=== PATIENT | female | born 1990 | race African-American/Black ===

== ENCOUNTER → 2016-09-06 21:00 | Emergency (ER) | payer OTHER ==
[~2016-09-06 21:00] MED LIST: BACTRIM DS TABL1 TAB PO; DARVOCET-N 1001 TAB PO; OMEPRAZOLE20 M2 PO; PEPCID AC20 M2 PO; PEPCID40 MG PO; PHENERGAN PO; PHENERGAN25 MG PO; PRENATAL1 TA1 PO; ZOFRAN ODT4 MG PO; ZOFRAN PO; ZOFRAN8 MG PO
== END | disposition home or self-care (01) ==
LOC: CED 21:00
DX: R06.02 Shortness of breath (principal); J45.909 Unspecified asthma, uncomplicated; F17.210 Nicotine dependence, cigarettes, uncomplicated
CPT/HCPCS: 94640; 99283

== ENCOUNTER 2016-09-06 23:31 | Emergency (ER) | payer OTHER ==
--- NOTE | ~2016-09-06 | CR72 ---
[facility] A Service of [facility] & [facility] RADIOLOGY TEXT RESULTS PATIENT: MARÍA ELENA ANGELES LOCATION: [facility] : [birth year] UNIT #: [id number] AGE: [address]: Cat Fatima MD SEX: F ORDER DR: [id number] [facility] [address] [place], [place] [address] [id number] E MR#: [id number] Acc #: [id number] NAME: MARÍA ELENA ANGELES : 1990 SEX: F STUDY DATE/TIME: 09/06/2016 22:49 UNIT: [facility] ROOM: STUDY DESCRIPTION: CR Chest Single View Portable Attending Physician: Cat Fatima M.D. Ordering Physician: Cat Fatima M.D. Primary Care Physician: Primary Care Physician No MEDICAL IMAGING REPORT This report is preliminary unless electronic signature is present EXAM Portable chest INDICATIONS Dyspnea, shortness of air beginning 09/06. FINDINGS A portable view of the chest was obtained. The heart size and vascularity are normal, the lungs are clear and the bones are unremarkable. IMPRESSION No active disease. Dictated by... Gianni Storm M.D. THIS IS AN ELECTRONICALLY VERIFIED REPORT Gianni Storm M.D. at 09/07/2016 5:05 AM GIGI/leonardo TD: 09/07/2016 00:11 JOB #: [id number] MEDICAL IMAGING REPORT Page 1 of 1 COPY
--- NOTE | ~2016-09-06 | EKG ---
PATIENT: MARÍA ELENA ANGELES UNIT #: [id number] Ventricular Rate: 101 BPM Atrial Rate: 101 BPM P-R Interval: 162 ms QRS Duration: 66 ms Q-T Interval: 344 ms QTC Calculation(Bezet): 446 ms P Dorr: 58 degrees Calculated R Dorr: 68 degrees Calculated T Dorr: 51 degrees Diagnosis Line: Sinus tachycardia Diagnosis Line: Otherwise normal ECG Diagnosis Line: When compared with ECG of 25-FEB-2013 13:16, Diagnosis Line: (unconfirmed) Diagnosis Line: No significant change was found Diagnosis Line: Confirmed by BRISA STATON MD ([id number]) on Diagnosis Line: 09/08/2016 6:35:08 AM INTERPRETING BLANCA OLPEZ
--- NOTE | ~2016-09-06 | CT16 ---
[facility] A Service of [facility] RADIOLOGY TEXT RESULTS PATIENT: MARÍA ELENA ANGELES LOCATION: [facility] : [birth year] UNIT #: [id number] AGE: [address]: Cat Fatima MD SEX: F ORDER DR: [id number] [id number] [facility]. [place], [place] [address] [id number] E MR#: [id number] Acc #: [id number] NAME: MARÍA ELENA ANGELES : 1990 SEX: F STUDY DATE/TIME: 09/07/2016 1:07 UNIT: [facility] ROOM: STUDY DESCRIPTION: CT Angio Chest for PE Attending Physician: Cat Fatima M.D. Ordering Physician: Cat Fatima M.D. Primary Care Physician: Primary Care Physician No MEDICAL IMAGING REPORT This report is preliminary unless electronic signature is present EXAM CT chest with pulmonary embolus protocol INDICATIONS Shortness of air, chest tightness, cough for 2 hours. TECHNIQUE The patient was given 80 mL of Isovue-370 and spiral imaging was performed through the chest. 3-D reconstructions through the pulmonary arteries were generated. This CT exam was performed with one or more of the following radiation dose reduction techniques: Automatic exposure control, adjustment of mA and/or kV according to patient size, and iterative reconstruction. FINDINGS The lungs are clear except for a 4-mm nodule in the right lower lobe, which is unchanged from a CT abdomen and pelvis from 12/12/2013. The thyroid gland is normal. The aorta is normal in size and there is no dissection. The pulmonary arteries are optimally opacified and there is no CT evidence of pulmonary embolus. There is no mediastinal or hilar adenopathy. Normal thymic tissue is present in the anterior mediastinum. Visualized portions of the upper abdomen are normal. Bones are unremarkable. IMPRESSION 1. There is a 4-mm nodule in the right lower lobe which is unchanged from November 2013 and therefore benign. 2. There is no CT evidence of the pulmonary embolus. The study is otherwise normal. Dictated by... Gianni Storm M.D. [facility] A Service of [facility] & [facility] RADIOLOGY TEXT RESULTS PATIENT: MARÍA ELENA ANGELES LOCATION: [facility] : [birth year] UNIT #: [id number] AGE: [address]: Cat Fatima MD SEX: F ORDER DR: THIS IS AN ELECTRONICALLY VERIFIED REPORT Gianni Storm M.D. at 09/07/2016 5:05 AM GIGI/leonardo TD: 09/07/2016 02:56 JOB #: [id number] MEDICAL IMAGING REPORT Page 1 of 1 COPY
[2016-09-06 22:48] LABS: ARTERIAL BLOOD GAS CARBOXY HB 0.7 %sat (0.0-9.0); ARTERIAL BLOOD GAS HCO3 24.3 mmol/L; ARTERIAL BLOOD GAS MET HB 0.9 %sat (0.0-2.0); ARTERIAL BLOOD GAS PCO2 34.4 mmHg (35.0-45.0); ARTERIAL BLOOD GAS pH 7.457 (7.350-7.450)
[2016-09-06 22:49] LABS: ARTERIAL BLOOD GAS ALLEN TEST NORMAL; ARTERIAL BLOOD GAS ART SITE RIGHT RADIAL; ARTERIAL BLOOD GAS DELIVERY NASAL CANNULA; ARTERIAL DRAW? YES
[2016-09-06 23:19] LABS: BASOPHIL# 0.1 X10e3 (0-0.3); BASOPHIL% 0.6 % (0-2.5); EOSINOPHIL# 0.1 X10e3 (0-0.7); EOSINOPHIL% 1.2 % (0.0-7.0); HEMATOCRIT 34.3 % (35.0-45.0); HEMOGLOBIN 10.6 gm/dL (12.0-16.0); LYMPHOCYTE# 1.5 X10e3 (1.0-3.5); LYMPHOCYTE% 11.8 % (17.0-45.0); MEAN CELL VOLUME 68.9 FL (83-96); MEAN CORPUSCULAR HEMOGLOBIN 21.3 PG (28-34); MONOCYTE# 0.7 X10e3 (0-1.0); MONOCYTE% 5.8 % (3.0-12.0); NEUTROPHIL% 80.6 % (40-75); PLATELET COUNT 282 X10e3 (140-420); RED BLOOD COUNT 4.98 X10e (3.90-5.30); WHITE BLOOD COUNT 12.5 X10e3 (4.0-10.5)
[2016-09-06 23:20] LABS: POC - CKMB <1.0 ng/mL (0.0-7.9); POC - TROPONIN <0.05 ng/mL (<=0.05)
[2016-09-06 23:21] LABS: DIFF IND NO
[2016-09-06 23:32] LABS: URINE SOURCE CLEAN CATCH
[2016-09-06 23:34] LABS: PARTIAL THROMBOPLASTIN TIME 33.3 SECONDS (23.5-31.3); PROTHROMBIN TIME (PATIENT) 10.5 SECONDS (9.6-11.5)
[2016-09-06 23:36] LABS: URINE APPEARANCE CLEAR; URINE BILIRUBIN NEG (NEG); URINE BLOOD NEG (NEG); URINE COLOR YELLOW; URINE GLUCOSE NEG (NEG); URINE KETONE TRACE (NEG); URINE LEUKOCYTE ESTERASE NEG (NEG); URINE NITRATE NEG (NEG); URINE PROTEIN NEG (NEG); URINE SPECIFIC GRAVITY 1.025 (1.003-1.035)
[2016-09-06 23:41] LABS: CULTURE INDICATED? NO
[2016-09-06 23:46] LABS: AMPHETAMINE NEG (NEG); BARBITURATES NEG (NEG); BENZODIAZEPINES NEG (NEG); COCAINE NEG (NEG); MARIJUANA NEG (NEG); OPIATES NEG (NEG); TRICYCLIC ANTIDEPRESSANTS NEG (NEG); U METHADONE NEG (NEG)
[2016-09-06 23:46] LABS: ALBUMIN SERUM 4.2 g/dL (3.5-5.0); BILIRUBIN, DIRECT 0.1 mg/dL (0.0-0.2); BILIRUBIN,INDIRECT 0.3 mg/dL (0.0-0.9); BILIRUBIN,TOTAL 0.4 mg/dL (0.2-2.0); BUN/CREATININE RATIO 14.28; CREATININE SERUM 0.7 mg/dL (0.6-1.4); GLOM FILT RATE Estimated 138.6 mL/min (>60); POTASSIUM 3.3 mmol/L (3.5-5.1); PROTEIN TOTAL SERUM 8.4 g/dL (6.0-8.3)
== END 2016-09-07 01:50 | disposition home or self-care (01) ==
LOC: CED 23:31
PROVIDERS: Emergency Medicine
DX: R06.02 Shortness of breath (principal); F17.210 Nicotine dependence, cigarettes, uncomplicated
CPT/HCPCS: 36415; 36600; 71010; 71275; 80048; 80076; 80307; 81003; 82553; 82803; 83880; 84484; 84703; 85025; 85610; 85730; 93005; 96374; 96375; 99284; J2060; J2930; Q9967